=== PATIENT | male | born 1940 | race Caucasian/White ===

== ENCOUNTER 2017-04-05 20:38 | Emergency (ER) | payer MEDICARE, BC ==
[~2017-04-05 20:38] MED LIST: GLUCTAB47 PO; IRBE150T51 PO; LEVO100T4 PO; MECL25 PO; METF-324 PO; ROSU5 PO
[2017-04-05 21:05] VITALS: BP 146/91; PULSE 70; RESP 20; TEMP 98.1
[2017-04-05] MEDS ORDERED: HYDR12.57 PO (22:03)
[2017-04-05] MEDS ORDERED: HYDR-3580 PO ×2 (22:03)
[2017-04-05] MEDS ORDERED: METF1000 PO (22:03)
[2017-04-05] MEDS ORDERED: IRBE150T15 PO (22:03)
[2017-04-05] MEDS ORDERED: ROSU5 PO (22:03)
[2017-04-05] MEDS ORDERED: GLIM1TAB PO (22:03)
[2017-04-05] MEDS ORDERED: LEVO112T2 PO (22:03)
[2017-04-05] MEDS ORDERED: SITA1TAB2 PO (22:03)
[2017-04-05] MEDS ORDERED: ACYC800T PO (22:56)
[2017-04-05] MEDS ORDERED: GABA300C5 PO (22:56)
[2017-04-05] MEDS ORDERED: NORC5TAB PO (22:56)
[2017-04-05] MEDS ORDERED: BACT800T5 PO (22:56)
--- NOTE | 2017-04-05 22:56 | PD ---
HPI Chief Complaint: Skin Problem Time Seen by Provider: 22:40 Travel History International Travel<30 days: No Contact w/Intl Traveler<30days: No Traveled to known affect area: No History of Present Illness HPI 76-year-old male complaining of painful rash on the right side of the scalp area on the right side the neck. Patient states that the symptoms started a week ago. Patient denies any fever chills. Patient states the pain is burning pain sharp pain localized to the right side the scalp and right sided neck area. Patient denies any pain radiation. Patient denies any fever chills. Patient denies any injury. PFSH Past Medical History Cancer: No High Cholesterol: Yes Diabetes: Yes Patient Takes Glucophage: Yes (04/05/17 1700) Diminished Hearing: Yes (left hearing aid) Glaucoma: No Hepatitis: No Hiatal Hernia: No Hypertension: Yes Medical other: Yes (arthritis) Thyroid Disease: No Tetanus Vaccination: < 5 Years Influenza Vaccination: Yes Past Surgical History Pacemaker: No Social History Alcohol Use: Yes (rare occ wine) Tobacco Use: No Substance Use: No Allergies-Medications (Allergen,Severity, Reaction): Coded Allergies: No Known Allergies (Unverified Adverse Reaction, Unknown, 04/05/17) Reported Meds & Prescriptions Reported Meds & Active Scripts Active Reported Hydrocodone-Acetaminophen 7.5 Mg-325 Mg Tab 1 Tab PO Q6HR PRN Hydrocodone-Acetaminophen 7.5 Mg-325 Mg Tab 1 Tab PO DAILY PRN Irbesartan 150 Mg Tab 150 Mg PO DAILY Levothyroxine (Levothyroxine Sodium) 112 Mcg Tab 112 Mcg PO DAILY Crestor (Rosuvastatin Calcium) 5 Mg Tab 5 Mg PO DAILY Glimepiride 1 Mg Tab 1 Mg PO BID Take with breakfast or first main meal Hydrochlorothiazide 12.5 Mg Cap 12.5 Mg PO DAILY Metformin (Metformin HCl) 1,000 Mg Tab 1,000 Mg PO BIDPC Januvia (Sitagliptin Phosphate) 100 Mg Tab 100 Mg PO DAILY Review of Systems General / Constitutional: No: Fever Eyes: No: Visual changes HENT: No: Headaches Cardiovascular: No: Chest Pain or Discomfort Respiratory: No: Shortness of Breath Gastrointestinal: No: Abdominal Pain Genitourinary: No: Dysuria Musculoskeletal: No: Pain Skin: Positive Rash Neurologic: No: Weakness Psychiatric: No: Depression Endocrine: No: Polydipsia Hematologic/Lymphatic: No: Easy Bruising Physical Exam Narrative GENERAL: Well-nourished, well-developed patient. SKIN: Focused skin assessment warm/dry. HEAD: Normocephalic. EYES: No scleral icterus. No injection or drainage. NECK: Supple, trachea midline. No JVD or lymphadenopathy. CARDIOVASCULAR: Regular rate and rhythm without murmurs, gallops, or rubs. RESPIRATORY: Breath sounds equal bilaterally. No accessory muscle use. GASTROINTESTINAL: Abdomen soft, non-tender, nondistended. MUSCULOSKELETAL: No cyanosis, or edema. BACK: Nontender without obvious deformity. No CVA tenderness. Patient has blistering rash localized to right side the scalp area temporal, parietal, occipital area of the scalp and the right side the neck. Mild redness associate with the rash. No discharge. Right-sided neck cervical lymphadenopathy Noted. No meningismus. Data Data Last Documented VS Vital Signs Date Time Temp Pulse Resp B/P (MAP) Pulse Ox O2 Delivery O2 Flow Rate FiO2 04/05/17 21:05 98.1 70 20 146/91 (109) Orders Orders Ibuprofen (Motrin) (04/05/17 23:00) [facility] Medical Decision Making Medical Screen Exam Complete: Yes Emergency Medical Condition: Yes Differential Diagnosis Differential diagnosis including shingles, cellulitis. Narrative Course 76-year-old male with painful rash on the right side of the scalp in the right side the neck. Typical of shingles. Patient had redness associate with the rash, could be associated with early cellulitis. Bactrim DS one tablet by mouth given. Ibuprofen 600 mg, one tablet by mouth Diagnosis Primary Impression: Shingles Qualified Codes: B02.9 - Zoster without complications Referrals: Elia Pearson MD (PCP) call for appointment Patient Instructions: General Instructions, Shingles (ED) Departure Forms: Tests/Procedures Additional Instructions: Take medications as directed. Follow-up with personal physician. Return if worse. Med/Other Pt SpecificInfo: Prescription(s) given Scripts Sulfamethoxazole-Trimethoprim (Bactrim DS) 800-160 Mg Tab 1 TAB PO BID for Infection, #14 TAB 0 Refills Prov: Wyatt Cabrera MD 04/05/17 Hydrocodone-Acetaminophen ([place]) 5 Mg-325 Mg Tab 1 TAB PO Q6H Y for PAIN, #20 TAB 0 Refills Prov: Wyatt aCbrera MD 04/05/17 Acyclovir (Acyclovir) 800 Mg Tab 800 MG PO 5 TIMES A DAY for Mgmt Viral Infection, #35 TAB 0 Refills Prov: Wyatt Cabrera MD 04/05/17 Gabapentin (Gabapentin) 300 Mg Cap 300 MG PO TID, #30 CAP 0 Refills Prov: Wyatt Cabrera MD 04/05/17 Disposition: 01 DISCHARGE HOME Condition: Stable Wyatt Cabrera MD Apr 05, 2017 22:56
[2017-04-05] MEDS ORDERED: IBUPROFEN 600 MG TAB PO ONE (23:00)
== END 2017-04-05 23:02 | disposition home or self-care (01) ==
LOC: PHEFT 20:38
DX: B02.9 Zoster without complications (principal); E78.00 Pure hypercholesterolemia, unspecified; E11.9 Type 2 diabetes mellitus without complications; I10 Essential (primary) hypertension; M19.90 Unspecified osteoarthritis, unspecified site
CPT/HCPCS: 99283